=== PATIENT | male | born 1995 | race Caucasian/White ===

== ENCOUNTER → 2018-09-02 | Outpatient (CLI) | payer BC ==
--- NOTE | 2018-09-02 09:49 | XR ---
Lumbar spine HISTORY: Low back pain 3 views of the lumbar spine correlated to the thoracic spine same date There is a spinal curvature present. Postop change noted with fixation rods in the thoracic spine ext ending to the L1 vertebral body. Lumbar vertebral bodies show preserved height and alignment. Disc sp aces are maintained. IMPRESSION: Scoliosis and postop changes.
--- NOTE | 2018-09-02 09:54 | XR ---
Thoracic spine HISTORY: Chronic pain 3 views of the thoracic spine. Frontal view does not show the thoracic spine in its entirety. Dextroscoliosis is present centered at approximately T9. Posterior fixation rods are present extending from the approximate T4 vertebral yash dy through L1. Thoracic vertebral bodies show preserved height and bone mineralization. No evident pa raspinal mass. Disc spaces are maintained. There is associated wire fixations at the T10, T9, T8 and T7 levels. Metallic device is noted in the region of the mediastinum at the aorticopulmonary window r egion. IMPRESSION: Postop changes, scoliosis. Limitations as described.
== END ==
LOC: RADXRYALE 09:28
PROVIDERS: ATTEND Family Medicine
DX: M41.86 Other forms of scoliosis, lumbar region (principal); M41.84 Other forms of scoliosis, thoracic region; Z98.890 Other specified postprocedural states
CPT/HCPCS: 72072; 72100

== ENCOUNTER 2019-02-27 11:16 | Day surgery (SDC) | payer BC ==
[2019-02-26 11:38] VITALS: BMI 15.8
[~2019-02-27 11:16] MED LIST: LACTATED RINGERS 1,000 ML IV SCH
[2019-02-27 11:36] VITALS: TEMP 96.8
[2019-02-27] MEDS ORDERED: LIDOCAINE 1% 20 ML VIAL (10MG/ML) FOR IV START INTRADERMA ONE (11:46)
[2019-02-27] MEDS ORDERED: PROPOFOL 10 MG/ML 20 ML VIAL IV ONE (12:07)
--- NOTE | 2019-02-27 12:19 | P.PCN ---
Date of Procedure: 02/27/19 Procedure(s) Performed: BRIEF HISTORY: Patient is a 23-year-old, pleasant, white male, scheduled for an upper endoscopy as a part of evaluation of epigastric pain for the last 1 year duration. Symptoms happened at certain foods and postprandially associated nausea but no emesis. No weight loss. PROCEDURE PERFORMED: Esophagogastroduodenoscopy with biopsy. PREOPERATIVE DIAGNOSIS: And chronic epigastric pain. IV sedation per anesthesia. PROCEDURE: After informed consent was obtained, the patient was brought into the endoscopy unit. IV sedation was administered by Anesthesia under continuous monitoring. Initially the Olympus GIF-140 video endoscope was inserted into the mouth. Esophagus intubated without any difficulty. It was gradually advanced into the stomach and duodenum and carefully examined. The bulb and the second part of the duodenum appeared normal. Done from the Duodenum to Rule Out Celiac Disease. The scope at this time was withdrawn to the stomach, adequately insufflated with air, and upon careful examination, mucosa of the antrum had mild gastritis and biopsies were done from this area. The, body, cardia and the fundus appeared normal. The scope was then withdrawn into the esophagus. The GE junction was located at 39 cm from the incisors. There were 2 superficial e rosions at the GE junction consistent with LA grade a reflux esophagitis. The esophagus appeared normal. There were no erosions or ulcerations seen and the patient tolerated the procedure well. IMPRESSION: 1. Mild antral gastritis. 2. LA grade a reflux esophagitis. RECOMMENDATIONS: The findings of this examination were discussed with the patient as well as his family. He was advised to start on Zantac 150 milligrams twice daily and follow antireflux measures.
[2019-02-27 13:07] VITALS: BP 105/67; PULSE 88; RESP 16
== END 2019-02-27 13:07 | disposition home or self-care (01) ==
LOC: ORWHC2ENDO 11:16
PROVIDERS: ATTEND Internal Medicine Gastroenterology
DX: K29.50 Unspecified chronic gastritis without bleeding (principal); K21.0 Gastro-esophageal reflux disease with esophagitis; F17.200 Nicotine dependence, unspecified, uncomplicated; Z88.0 Allergy status to penicillin; Z88.1 Allergy status to other antibiotic agents; Z91.040 Latex allergy status; Z91.013 Allergy to seafood
CPT/HCPCS: 88305; 43239; J2704

== ENCOUNTER → 2019-07-31 | Outpatient (CLI) | payer BC ==
--- NOTE | 2019-08-02 17:35 | XR ---
EXAMINATION TYPE: XR chest 2V DATE OF EXAM: 07/31/2019 COMPARISON: 06/06/2018 HISTORY: 24-year-old male with cough and chest pain TECHNIQUE: Frontal and lateral views FINDINGS: Dextro convex scoliosis with yarely and screw fixation as well as surgical wires. Ductus closure device noted. Heart borderline enlarged, possibly accentuated due to the spine projecting over the right hea rt margin. Some blunting of the right costophrenic angle is unchanged from 06/06/2018 suggesting chroni c pleural parenchymal scarring. Pectus excavatum deformity. IMPRESSION: Pectus excavatum and dextro convex scoliosis. 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 Otherwise, no acute process seen.
== END | disposition home or self-care (01) ==
LOC: RADXRYALE 15:54
PROVIDERS: ATTEND Physician Assistant Medical
DX: R91.8 Other nonspecific abnormal finding of lung field (principal); M41.80 Other forms of scoliosis, site unspecified; R05 Cough
CPT/HCPCS: 71046

== ENCOUNTER → 2025-04-30 | Outpatient (CLI) | payer BC ==
--- NOTE | 2025-04-30 17:05 | XR ---
EXAMINATION TYPE: XR thoracic spine complete, XR lumbosacral spine min 4V DATE OF EXAM: 04/30/2025 4:36 PM COMPARISON: plain film CLINICAL INDICATION: Male, 29 years old with history of [id number] LBP; YCH, pain TECHNIQUE: XR thoracic spine complete, XR lumbosacral spine min 4V views of the spine in Frontal, swi mmers and lateral projections. Frontal lateral and bilateral obliques of the lumbar spine FINDINGS: Fixation hardware seen throughout the spine involving predominantly the thoracic and upper lumbar spine. Fixation hardware is not that different compared to prior exam on 09/02/2018. Hardware a ppears intact. Vascular stent is noted projecting over the aortic arch. Scoliosis changes present wit h dextroscoliosis with apex at T9 Juarez Angle 37 degrees. No evidence of fracture. Mild degeneration changes throughout the spine. IMPRESSION: 1. Postsurgical changes without acute osseous pathology. 2. Dextroscoliosis apex at T9 to 37 degrees Juarez angle 3. Minimal degeneration changes throughout the spine. [facility], , 04/30/2025 5:03 PM
== END | disposition home or self-care (01) ==
LOC: RADXRYALE 16:14
PROVIDERS: ATTEND Physician Assistant Medical
DX: M51.360 Other intervertebral disc degeneration, lumbar region with discogenic back pain only (principal); M41.84 Other forms of scoliosis, thoracic region; Z98.890 Other specified postprocedural states
CPT/HCPCS: 72072; 72110